=== PATIENT | female | born 1945 | race Caucasian/White ===

== ENCOUNTER → 2017-08-07 16:59 | Outpatient (CLI) | payer MEDICARE ==
[2011-01-30 06:35] VITALS: BMI 44.8
== END | disposition home or self-care (01) ==
LOC: D.MAMMO 14:30
DX: C50.412 Malignant neoplasm of upper-outer quadrant of left female breast (principal)

== ENCOUNTER → 2018-09-02 17:00 | Outpatient (CLI) | payer MEDICARE ==
[2011-01-30 06:35] VITALS: BMI 44.8
== END | disposition home or self-care (01) ==
LOC: D.MAMMO 13:00
DX: Z85.3 Personal history of malignant neoplasm of breast (principal)